=== PATIENT | female | born 1975 | race Asian ===

== ENCOUNTER 2020-06-07 05:19 | Inpatient (IN) | payer OTHER ==
[2020-06-07] VITALS (12 sets, daily range): BP systolic 110–151; BP diastolic 64–90
[~2020-06-07] VITALS: Ht 160 cm; Wt 54.4 kg
[~2020-06-07 05:19] MED LIST: ADVIL200 MG ORAL; TYLENOL EXTRA500 MG ORAL
--- NOTE | 2020-06-07 06:36 | Anethesia Preoperative Eval ---
Anesthesia Pre-op PMH/ROS General Date of Evaluation: Jun 07, 2020 Time of Evaluation: 06:59 Anesthesiologist: Pratima ASA Score: ASA 2 Mallampati Score Class I : Soft palate, uvula, fauces, pillars visible Class II: Soft palate, uvula, fauces visible Class III: Soft palate, base of uvula visible Class IV: Only hard plate visible Mallampati Classification: Class II Surgeon: Jory Diagnosis: Bck Pain Surgical Procedure: L Microdiscectomy L5-S1 Anesthesia History: none Family History: no anesthesia problems Allergies: Coded Allergies: No Known Allergies (Unverified , 06/07/20) Medications: see eMAR Patient NPO?: Yes Past Medical History Cardiovascular: Reports: HTN Anesthesia Pre-op Phys. Exam Physician Exam Last Vital Signs Date Time Temp Pulse Resp B/P (MAP) Pulse Ox O2 Delivery O2 Flow Rate FiO2 06/07/20 05:55 Room Air 06/07/20 05:55 97.4 65 18 136/85 (102) 98 Constitutional: NAD Neurologic: CN 2-12 intact Cardiovascular: RRR Respiratory: CTA Gastrointestinal: S/NT/ND Airway Exam Mallampati Score: Class II MO: limited ROM: limited Teeth: missing, intact Anesthesia Pre-op A/P Labs Urine Test Test 06/07/20 05:30 Urine HCG, Qualitative Negative (NEGATIVE) Risk Assessment & Plan Assessment: ASA 2 Plan: GA, SED, GlideScope Status Change Before Surgery: No Pre-Antibiotics Dru Grams Ancef IV Given Within 1 Hr of Incision: Yes Time Given: 07:26 Pepe Andujar MD Jun 07, 2020 06:36
[2020-06-07] MEDS ORDERED: Sodium Chloride 10ml vial INJ ONE (06:39)
[2020-06-07] MEDS ORDERED: Lidocaine 1% MPF 10mg/ml 5ml ONE (06:39)
[2020-06-07] MEDS ORDERED: fentaNYL 100 mcg/2 mL IV ONE (06:42)
[2020-06-07] MEDS ORDERED: LORazepam Inj 2mg/ml 1ml IV PRN (06:45)
[2020-06-07] MEDS ORDERED: Ketorolac 30mg Inj IV PRN ×2 (06:45)
[2020-06-07] MEDS ORDERED: oxyCODONE HCL/Acetaminophen 5/325mg ORAL PRN (06:45)
[2020-06-07] MEDS ORDERED: Atropine Sulfate 0.4mg/ml inj IVP PRN (06:45)
[2020-06-07] MEDS ORDERED: Meperidine 25mg/1ml Inj (FOR RIGORS ONLY) IV PRN (06:45)
[2020-06-07] MEDS ORDERED: Acetaminophen (Non formulary) 100 ML IV ONE (06:45)
[2020-06-07] MEDS ORDERED: HYDROcodone/Acetamin 5/325 tab ORAL PRN ×2 (06:45→11:00)
[2020-06-07] MEDS ORDERED: Hydromorphone 0.5mg/0.5ml inj IVP PRN (06:45)
[2020-06-07] MEDS ORDERED: Rocuronium Bromide 50mg/5ml Inj IV ONE (06:45)
[2020-06-07] MEDS ORDERED: LR 1000ml 1,000 ML IVLG SCH (06:45)
[2020-06-07] MEDS ORDERED: Labetalol 5mg/ml 20ml vial IV PRN (06:45)
[2020-06-07] MEDS ORDERED: Midazolam 2mg/2ml Inj IVP PRN (06:45)
[2020-06-07] MEDS ORDERED: DiphenhydrAMINE 50mg/ml Inj IVP PRN (06:45)
[2020-06-07] MEDS ORDERED: HYDROcodone/Acetamin 7.5/325 tab ORAL PRN ×3 (06:45→11:00)
[2020-06-07] MEDS ORDERED: Metoclopramide 10mg/2ml Inj IVP PRN ×2 (06:45→07:30)
[2020-06-07] MEDS ORDERED: fentaNYL 100 mcg/2 mL IV PRN (06:45)
[2020-06-07] MEDS ORDERED: Lidocaine 1% Plain 30 ml INJ ONE (06:52)
[2020-06-07] MEDS ORDERED: Thrombin 5000 units TOPIC ONE (06:55)
[2020-06-07] MEDS ORDERED: Vancomycin 1gm vial IVPB ONE (06:55)
[2020-06-07] MEDS ORDERED: Gelfoam Size TOPIC ONE (06:55)
[2020-06-07] MEDS ORDERED: Bacitracin 50000 Units Vial ONE (06:56)
[2020-06-07] MEDS ORDERED: Ropivacaine 5mg/ml Vial 30ml INJ ONE ×2 (06:56→08:39)
[2020-06-07] MEDS ORDERED: Naloxone 0.4mg/ml Inj ONE (06:59)
[2020-06-07] MEDS ORDERED: ceFAZolin sod 2 GM in NS 55 ML IVPB ONE (07:00)
--- NOTE | 2020-06-07 07:26 | Pre-Procedure Note/Attestation ---
Pre-Procedure Note/Attestation Complete Prior to Procedure Planned Procedure: left Procedure Narrative: Left sided microdiscectomy of L5S1 hemilaminotomy foraminotomy Indications for Procedure Pre-Operative Diagnosis: L5S1 herniation Attestation I attest that I discussed the nature of the procedure; its benefits; risks and complications; and alternatives (and the risks and benefits of such alternatives), prior to the procedure, with the patient (or the patient's legal sales representative groceries). I attest that, if there was a reasonable possibility of needing a blood transfusion, the patient (or the patient's legal sales representative groceries) was given the [facility] standardized written summary, pursuant to the Masood Karn[place] Blood Safety Act ([place] Health and Safety Code # 1645, as amended). I attest that I re-evaluated the patient just prior to the surgery and that there has been no change in the patient's H&P, except as documented below: Karlos Corley MD Jun 07, 2020 07:26
--- NOTE | 2020-06-07 07:27 | Brief Operative Note ---
Immediate Post Operative Note Operative Note Chief Complaint: low back pain and left sided radiculopathy Pre-op Diagnosis: L5S1 herniation Procedure: Left sided hemilaminotomy foraminotomy microdiscectomy of L5S1 Post-op Diagnosis: same as pre-op - d Findings: consistent w/pre-op dx studies Surgeon: Jory [facility] Worker: Marisol Additional Surgeons: Pratima Anesthesia: general Specimen: none Complications: none Condition: stable Fluids: IVF Estimated Blood Loss: minimal Drains: none Implant(s) used?: No Karlos Corley MD Jun 07, 2020 07:27
[2020-06-07] MEDS ORDERED: Glycopyrrolate 0.2mg/ml 1ml Vial ONE (08:37)
--- NOTE | 2020-06-07 09:11 | Immediate Post-Op Evaluation ---
Immediate Post-Op Evalulation Immediate Post-Op Evalulation Procedure: L Microdiscectomy L5-S1 Date of Evaluation: Jun 07, 2020 Time of Evaluation: 09:25 IV Fluids: 400 LR Blood Products: 0 Estimated Blood Loss: 100 Urinary Output: 150 Blood Pressure Systolic: 124 Blood Pressure Diastolic: 86 Pulse Rate: 68 Respiratory Rate: 16 O2 Sat by Pulse Oximetry: 100 Temperature (Fahrenheit): 97.5 Nausea: No Vomiting: No Complications 0 Patient Status: awake, reacts, patent, extubated, none Hydration Status: adequate Dru Grams Ancef IV Given Within 1 Hr of Incision: Yes Time Given: 07:26 Pepe Andujar MD Jun 07, 2020 09:11
--- NOTE | 2020-06-07 09:12 | 48 Hour Post Anesthesia Eval ---
Post Anesthesia Evaluation Procedure: L Microdiscectomy L5-S1 Date of Evaluation: Jun 07, 2020 Time of Evaluation: 11:34 Blood Pressure Systolic: 122 0: 78 Pulse Rate: 67 Respiratory Rate: 18 Temperature (Fahrenheit): 98 O2 Sat by Pulse Oximetry: 100 Airway: patent Nausea: No Vomiting: No Pain Intensity: 2 Hydration Status: adequate Cardiopulmonary Status: Stable Mental Status/LOC: patient returned to baseline Follow-up Care/Observations: 0 Post-Anesthesia Complications: 0 Follow-up care needed: N/A Pepe Andujar MD Jun 07, 2020 09:12
--- NOTE | 2020-06-07 10:30 | NUR ---
NURSE NOTES: Patient arrived to unit at 1025 via bed, in no apparent distress, drowsy but arousable to voice, reporting no pain. Received report from Ramonita HILL. Surgical site dressing clean, dry, intact, IV intact and patent. Ice pack placed on surgical site. VS stable, patient on 2L NC, O2 saturation WNL. Patient oriented to room and plan of care. Side rails upx3, bed low and locked, call light within reach.
[2020-06-07] MEDS ORDERED: HYDROmorphone 1mg/ml Carpuject IVP PRN (11:00)
[2020-06-07] MEDS ORDERED: Morphine Sulfate 4mg/ml Inj (IV USE ONLY) IV PRN ×2 (11:00)
[2020-06-07] MEDS ORDERED: Morphine Sulfate 2mg/ml Inj(IV/IM USE ONLY) IV PRN (11:00)
[2020-06-07] MEDS ORDERED: Milk of Magnesia 30ml Ud ORAL PRN (11:00)
[2020-06-07] MEDS ORDERED: Naloxone 0.4mg/ml Inj IVP PRN (11:00)
[2020-06-07] MEDS ORDERED: Chloraseptic Spray 20mL Bottle ORAL PRN (11:30)
[2020-06-07] MEDS ORDERED: NS w/KCl 20mEq 1000ml 1,000 ML IV SCH (12:00)
--- NOTE | 2020-06-07 14:05 | Diagnostic Imaging Report ---
INDICATION: Pain, intraoperative TECHNIQUE: Intraoperative imaging Fluoroscopy time: 2.4 seconds Total dose: 0.20198 mGym2 Total number of images: 1 COMPARISON: None FINDINGS: Surgical tool projected over what is presumably the L5-S1 disc IMPRESSION: Intraoperative imaging, as described
[2020-06-07] MEDS ORDERED: ceFAZolin sod 1 GM in D5W 55 ML IV SCH (15:00)
--- NOTE | 2020-06-07 15:38 | NUR ---
P.T Note: P.T evaluation completed and tx initiated per spinal protocol. Please refer to P.T evaluation for current functional status.
--- NOTE | 2020-06-07 15:39 | NUR ---
NURSE NOTES: Patient got OOB with PT, ambulated with steady gait, voided without difficulty. Patient stated she feels well and would like to be discharged home. Contacted Dr. Corley and received discharge order.
[2020-06-07] MEDS ORDERED: Sterile Water Irrig 1000ml IRRIG ONE (17:02)
[2020-06-07] MEDS ORDERED: NS Irrig 1000ml ONE (17:02)
[2020-06-07] MEDS ORDERED: LR 1000ml ONE (17:02)
--- NOTE | 2020-06-07 17:04 | NUR ---
CASE MANAGEMENT:REVIEW 44 YR OLD FEMALE FOR PLANNED SURGERY CC;L5 SI HERNIATION SI;Left sided microdiscectomy of L5S1 hemilaminotomy foraminotomy 97.4 68 18 136/85 97% ON RA RAPID COVID ~ NEGATIVE LUMBAR SPINE XRAY ~ Intraoperative imaging, as described IS;CEFAZOLIN IV DECADRON IV KCL IV ADMITTED TO MED SURG FOR POST OP CARE MED SURG STATUS DCP;FROM HOME
--- NOTE | 2020-06-07 17:05 | NUR ---
NURSE NOTES: Patient discharged without distress. Patient provided with discharge education and verbalized understanding of education, patient instructed to follow up with Dr. Corley as directed. IV removed intact. All belongings sent with patient. Patient escorted off unit via wheelchair to private vehicle, patient accompanied by her son Duncan. ID band removed.
[2020-06-07] MEDS ORDERED: Docusate Sod/Senna tab ORAL SCH (18:00)
[2020-06-07] MEDS ORDERED: Docusate 100mg cap ORAL SCH (18:00)
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
--- NOTE | 2020-06-09 11:06 | Discharge Summary ---
Discharge Summary Hospital Course Date of Admission Jun 07, 2020 at 05:19 Date of Discharge Jun 07, 2020 at 17:03 Admitting Diagnosis Herniated nucleus pulposus, L5-S1 herniation with worsening radiculopathy Reason for Hospitalization: Elective surgery HPI Pascale Cardoso is a 44 year old female who was admitted on Jun 07, 2020 at 05:19 for Herniated Nucleus Pulposus L5-S1, Pain, worsening radiculopathy. Patient was admitted for elective surgery. Procedures s/p 06/07/[address] Corley 1. Left-sided L5-S1 microdiscectomy. 2. L5-S1 hemilaminotomy, foraminotomy, and medial facetectomy. 3. L5-S1 neural foraminotomy through a transpedicular intraforaminal approach. 4. Use of intraoperative microscope. 5. Supervision and interpretation of intraoperative fluoroscopy. 6. Supervision and interpretation of somatosensory-evoked potential and free-running EMG monitoring. Hospital Course status post surgery course of recovery uneventful initially IV fluids s/p perioperative antibiotic and steroid neurovascular status closely monitored, remained stable incision dressed; clean dry and intact pain management was addressed pain was controlled remained hemodynamically stable ambulated with PT fall precautions maintained; safe for ambulation DVT prophylaxis provided use of incentive spirometry was encouraged while in the bed tolerated diet , IV fluids discontinued GI prophylaxis provided antiemetics were on board as needed voided freely bowel regimen instituted patient was stable for discharge discharge instructions provided follow up with surgeon in the office as advised FINAL DIAGNOSES 1. Intractable back pain. 2. Intractable leg pain. 3. Worsening radiculopathy. 4. Weakness. 5. Herniated nucleus pulposus, L5-S1 herniation. 6. Neural foraminal stenosis, L5-S1 7. s/p Left sided hemilaminotomy foraminotomy microdiscectomy of L5S1 Discharge Medications Continued Medications: Ibuprofen* (Advil*) 200 Mg Tablet 200 MG ORAL Q6H for PAIN, TAB Discharge Condition Upon Discharge: stable Discharge Vital Signs Last Vital Signs Date Time Temp Pulse Resp B/P (MAP) Pulse Ox O2 Delivery O2 Flow Rate FiO2 06/07/20 16:00 98.6 64 16 117/65 (82) 100 06/07/20 10:30 Nasal Cannula 2.0 Discharge Disposition Patient was discharged home. Discharge Instructions Discharge Instructions Special Instructions I have been assigned to complete a D/C Summary on this account. I was not involved in the patient management Sheri Nicole NP Jun 09, 2020 11:06
== END 2020-06-07 17:03 | disposition home or self-care (01) | DRG 520 ==
LOC: SDSOVERFLO 05:19 → 3E 10:22
PROC: 01NR0ZZ Release Sacral Nerve, Open Approach (ICD-10-PCS; principal; 2020-06-07 07:00)
PROC: 01NB0ZZ Release Lumbar Nerve, Open Approach (ICD-10-PCS; principal; 2020-06-07 07:00)
PROC: 0SB40ZZ Excision of Lumbosacral Disc, Open Approach (ICD-10-PCS; principal; 2020-06-07 07:00)
DX: M51.17 Intervertebral disc disorders with radiculopathy, lumbosacral region (principal); V43.52XS Car driver injured in collision with other type car in traffic accident, sequela; F17.200 Nicotine dependence, unspecified, uncomplicated; M48.07 Spinal stenosis, lumbosacral region
CPT/HCPCS: 36415; 72020; 76000; 81025; 86850; 86900; 86901; 87081; 94003; 94150; J2405; U0002